=== PATIENT | male | born 1995 | race Hispanic/Latino ===

== ENCOUNTER 2023-01-23 07:59 | Emergency (ER) | payer SELFPAY ==
--- NOTE | 2023-01-23 08:10 | EDPHYS ---
Physician Documentation [facility] Name: Georgi Mack Age: 27 yrs Sex: Male : 1995 Arrival Date: 01/23/2023 Time: 07:59 Bed Waiting Private MD: ED Physician Oswald Melissa HPI: 01/23 08:05 This 27 yrs old Male presents to ER via Ambulatory with complaints of Wound jh7 Infection. 08:05 Onset: The symptoms/episode began/occurred 8 day(s) ago. Associated signs and symptoms: jh7 Pertinent negatives: earache. 27-year-old male presents with possible staph infection of the right elbow possibly obtained from the gym. He denies fever or significant tenderness to the area. Denies any allergies or past medical history.. Historical: - Allergies: 08:14 No Known Allergies; vg1 - Immunization history:: Client reports having NOT received the Covid vaccine. - Social history:: Smoking status: Patient denies any tobacco usage or history of. ROS: 08:05 Constitutional: Negative for fever, chills, and weight loss, Eyes: Negative for injury, jh7 pain, redness, and discharge, Neck: Negative for injury, pain, and swelling, Cardiovascular: Negative for chest pain, palpitations, and edema, Respiratory: Negative for shortness of breath, cough, wheezing, and pleuritic chest pain, MS/Extremity: Negative for injury and deformity, Neuro: Negative for headache, weakness, numbness, tingling, and seizure. 08:05 Skin: Positive for erythema, pustules, of the right elbow. 08:05 All other systems are negative. Exam: 08:05 Constitutional: This is a well developed, well nourished patient who is awake, alert, jh7 and in no acute distress. Head/Face: Normocephalic, atraumatic. Eyes: Pupils equal round and reactive to light, extra-ocular motions intact. Lids and lashes normal. Conjunctiva and sclera are non-icteric and not injected. Cornea within normal limits. Periorbital areas with no swelling, redness, or edema. Neck: Trachea midline, no thyromegaly or masses palpated, and no cervical lymphadenopathy. Supple, full range of motion without nuchal rigidity, or vertebral point tenderness. No Meningismus. Cardiovascular: Regular rate and rhythm with a normal S1 and S2. No gallops, murmurs, or rubs. Normal PMI, no JVD. No pulse deficits. Respiratory: Lungs have equal breath sounds bilaterally, clear to auscultation and percussion. No rales, rhonchi or wheezes noted. No increased work of breathing, no retractions or nasal flaring. Back: No spinal tenderness. No costovertebral tenderness. Full range of motion. MS/ Extremity: Pulses equal, no cyanosis. Neurovascular intact. Full, normal range of motion. Neuro: Awake and alert, GCS 15, oriented to person, place, time, and situation. Motor strength 5/5 in all extremities. Sensory grossly intact. Normal gait. 08:05 Skin: cellulitis, that is mild, on the right elbow, Scab-like lesion on the R elbow with small amount of purulent drainage present. Mild surrounding erythema.. Vital Signs: 08:11 BP 141 / 81; Pulse 57; Resp 16; Temp 98.3; Pulse Ox 100% ; Weight 95.25 kg; Height 5 vg1 ft. 9 in. ; Pain 0/10; 08:11 Body Mass Index 31.01 (95.25 kg, 175.26 cm) vg1 08:11 Pain Scale: Adult vg1 MDM: 08:[address] [facility] 08:10 Differential diagnosis: bacterial infection, Staph infection, cellulitis, abscess. Data [facility] reviewed: vital signs, nurses notes. Counseling: I had a detailed discussion with the patient and/or guardian regarding: the historical points, exam findings, and any diagnostic results supporting the discharge/admit diagnosis, to return to the emergency department if symptoms worsen or persist or if there are any questions or concerns that arise at home. Administered Medications: No medications were administered Disposition Summary: 01/23/23 08:09 Discharge Ordered Location: Home [facility] Problem: [facility] Symptoms: are unchanged [facility] Condition: Stable [facility] Diagnosis - Local infection of the skin and subcutaneous tissue, unspecified [facility] Followup: [facility] - With: Private Physician - When: 2 - 3 days - Reason: Recheck today's complaints Discharge Instructions: - Discharge Summary Sheet [facility] - Cellulitis, Adult [facility] Forms: - Medication Reconciliation Form [facility] - Thank You Letter [facility] - Antibiotic Education [facility] Prescriptions: - mupirocin 2 % Topical ointment - apply 1 application by TOPICAL route 2-3 times daily for 7 days; 22 gram; jh7 Refills: 0, Product Selection Permitted - Bactrim DS 800-160 mg Oral Tablet - take 1 tablet by ORAL route every 12 hours for 10 days; 20 tablet; Refills: 0, 7 Product Selection Permitted Signatures: Kenya Aguillon, RN RN vg1 Kirsty López FNP [employer] [facility]
--- NOTE | 2023-01-23 08:17 | ER ---
Nurse's Notes [facility] Name: Georgi Mack Age: 27 yrs Sex: Male : 1995 Arrival Date: 01/23/2023 Time: 07:59 Bed Waiting Private MD: Diagnosis: Local infection of the skin and subcutaneous tissue, unspecified Presentation: 01/23 08:11 Chief complaint: Patient states: "infection" to Right elbow x 1 week. Coronavirus vg1 screen: Vaccine status: Patient reports being unvaccinated. Client denies travel out of the [place] in the last 14 days. Ebola Screen: Patient negative for fever greater than or equal to 101.5 degrees Fahrenheit, and additional compatible Ebola Virus Disease symptoms Patient denies exposure to infectious person. Patient denies travel to an Ebola-affected area in the 21 days before illness onset. Initial Sepsis Screen: Does the patient meet any 2 criteria? No. Patient's initial sepsis screen is negative. Does the patient have a suspected source of infection? No. Patient's initial sepsis screen is negative. Risk Assessment: Do you want to hurt yourself or someone else? Patient reports no desire to harm self or others. Onset of symptoms was January 16, 2023. 08:11 Method Of Arrival: Ambulatory vg1 08:11 Acuity: ORALIA 4 vg1 Triage Assessment: 08:14 General: Appears in no apparent distress. comfortable, Behavior is calm, cooperative. vg1 Pain: Denies pain. Derm: Wound noted right elbow. Historical: - Allergies: 08:14 No Known Allergies; vg1 - Immunization history:: Client reports having NOT received the Covid vaccine. - Social history:: Smoking status: Patient denies any tobacco usage or history of. Screenin:16 [facility] ED Fall Risk Assessment (Adult) History of falling in the last 3 months, vg1 including since admission No falls in past 3 months (0 pts). Abuse screen: Denies threats or abuse. Denies injuries from another. Nutritional screening: No deficits noted. Tuberculosis screening: No symptoms or risk factors identified. Vital Signs: 08:11 BP 141 / 81; Pulse 57; Resp 16; Temp 98.3; Pulse Ox 100% ; Weight 95.25 kg; Height 5 vg1 ft. 9 in. ; Pain 0/10; 08:11 Body Mass Index 31.01 (95.25 kg, 175.26 cm) vg1 08:11 Pain Scale: Adult vg1 ED Course: 08:02 Patient arrived in ED. mr 08:02 Kirst[facility] L[facility] jh7 08:02 Oswald Melissa MD is Attending Physician. jh7 08:14 Triage completed. vg1 08:14 Arm band placed on. vg1 08:16 Patient has correct armband on for positive identification. vg1 08:16 No provider procedures requiring assistance completed. Patient did not have IV access vg1 during this emergency room visit. Administered Medications: No medications were administered Medication: 08:16 VIS not applicable for this client. vg1 Outcome: 08:09 Discharge ordered by . jh7 08:16 Discharged to home ambulatory. vg1 08:16 Condition: good 08:16 Discharge instructions given to patient, Instructed on discharge instructions, follow up and referral plans. medication usage, Demonstrated understanding of instructions, follow-up care, medications, Prescriptions given X 2. 08:16 Patient left the ED. vg1 Signatures: Mercedes Hanna Kenya Aguillon, RN RN vg1 Kirsty López FNP [employer]IST[employer] [facility]
[2023-01-23 08:21] VITALS: BP 141/81; TEMP 98.3; O2SAT 100
== END 2023-01-23 08:16 | disposition home or self-care (01) ==
LOC: ER 07:59
DX: L03.113 Cellulitis of right upper limb (principal)
CPT/HCPCS: 99283